=== PATIENT | male | born 1975 | race Caucasian/White ===

== ENCOUNTER 2022-01-23 13:45 | Emergency (ER) | payer MEDICAID, OTHER ==
[2022-01-23] MEDS ORDERED: Bacitracin Oint 1 GM U/D Packet TOP ONE (14:11)
[2022-01-23] MEDS ORDERED: Lidocaine 1% with EPINEPHrine 1:100,000 50 ML MDV INFILT ONE (14:11)
[2022-01-23] MEDS ORDERED: Diphtheria,Pertussis(Acell),Tetanus Vaccine 0.5 ML Syringe IM ONE (14:59)
== END 2022-01-23 15:21 | disposition home or self-care (01) ==
LOC: JP.ED 13:45
DX: S61.412A Laceration without foreign body of left hand, initial encounter (principal); W26.9XXA Contact with unspecified sharp object(s), initial encounter; Z23 Encounter for immunization
CPT/HCPCS: 12004; 90471; 90715; 99281; 99282-25